=== PATIENT | male | born 1940 | race Caucasian/White ===

== ENCOUNTER 2019-09-29 17:43 | Emergency (ER) | payer MEDICARE, BC ==
[2019-09-29] MEDS ORDERED: predniSONE 20 MG TAB ONE (18:04)
--- NOTE | 2019-09-29 18:12 | RAD ---
RADIOGRAPH CHEST 2 VIEWS: DATE: 09/29/2019 6:02 PM HISTORY: 78-year-old male with cough and chest congestion FINDINGS: There is no consolidation, pulmonary edema, pleural effusion, pneumothorax, or cardiomegaly. At the p osterior base of the left lower lobe, there are streaky densities. IMPRESSION: 1. Streaky densities at posterior base of left lower lobe. Uncertain whether chronic or acute. 2. The rest of the lungs are clear.
== END 2019-09-29 18:24 | disposition home or self-care (01) ==
LOC: SCSER 17:43
DX: J18.9 Pneumonia, unspecified organism (principal); E11.9 Type 2 diabetes mellitus without complications; E78.5 Hyperlipidemia, unspecified
CPT/HCPCS: 71046; J7512; J7620